=== PATIENT | male | born 1990 | race Two or more races ===

== ENCOUNTER 2023-12-27 08:07 | Emergency (ER) | payer MEDICAID ==
[~2023-12-27] VITALS: Ht 172.7 cm; Wt 77.1 kg
[2023-12-27] MEDS: IV NS 0.9% 1,000 ML BAG IV ONE (08:20)
[2023-12-27 08:32] LABS: BASOPHILS % (AUTO) 0.6 % (0.0-2.0); EOSINOPHILS % (AUTO) 14.1 % (0.0-6.0); HEMATOCRIT 37 % (39-51); HEMOGLOBIN 12.4 g/dL (13.5-17.5); LYMPHOCYTES # (AUTO) 0.8 K/uL (0.8-4.8); LYMPHOCYTES % (AUTO) 10.6 % (20.0-44.0); MEAN CORPUSCULAR HEMOGLOBIN 30 PG (26.0-33.0); MEAN CORPUSCULAR HGB CONC 34 g/dl (31.0-36.0); MEAN CORPUSCULAR VOLUME 87 fL (80-96); MONOCYTES # (AUTO) 0.6 K/uL (0.1-1.30); MONOCYTES % (AUTO) 8.3 % (2.0-12.0); NEUTROPHILS # (AUTO) 4.9 K/uL (1.8-8.9); NEUTROPHILS % (AUTO) 66.4 % (43.0-81.0); PLATELET COUNT (AUTO) 334 K/uL (150-450); RED CELL DISTRIBUTION WIDTH 14.1 % (11.5-15.0); WHITE BLOOD COUNT (AUTO) 7.4 K/uL (4.3-11.0)
[2023-12-27] MEDS ORDERED: CARB15DR12 EACH EAR (08:35)
[2023-12-27 08:44] LABS: CALCIUM, SERUM 8.4 mg/dL (8.5-10.1); CREATININE 1.1 mg/dL (0.6-1.3); POTASSIUM 3.4 mmol/L (3.5-5.1)
[2023-12-27 09:54] VITALS: BP 110/89; TEMP 98; O2SAT 98
== END 2023-12-27 09:54 | disposition home or self-care (01) ==
LOC: ER 08:11
DX: R55 Syncope and collapse (principal); F19.10 Other psychoactive substance abuse, uncomplicated; R00.0 Tachycardia, unspecified; R94.6 Abnormal results of thyroid function studies; E86.0 Dehydration; H61.23 Impacted cerumen, bilateral; F41.9 Anxiety disorder, unspecified; Z59.00 Homelessness unspecified
CPT/HCPCS: 99285; 96360; 93005; 71045; 85025; 80048; 36415; 84443; 80320; J7030; G0480